=== PATIENT | male | born 1965 | race Caucasian/White ===

== ENCOUNTER 2020-06-04 07:02 | Day surgery (SDC) | payer BC ==
[~2020-06-04 07:02] MED LIST: Lactated Ringers 1,000 ML IV SCH; Lidocaine 1%/Sod Bicarbonate in NS 8.4% 1 ML Syringe IDERM PRN; Sodium Chloride 0.9% 10 ML Syringe FLUSH PRN
[2020-06-04] MEDS ORDERED: Rocuronium 50 MG/5 ML Vial ONE (07:07)
[2020-06-04] MEDS ORDERED: Midazolam 1 MG/ML 2 ML SDV ONE (07:07)
[2020-06-04] MEDS ORDERED: Propofol 200 MG/20 ML SDV ONE ×3 (07:07→08:57)
[2020-06-04] MEDS ORDERED: Lidocaine 1% 4 ML ONE (07:07)
[2020-06-04] MEDS ORDERED: fentaNYL 250 MCG/5 ML SDV ONE (07:08)
[2020-06-04] MEDS ORDERED: Lidocaine 1% with EPINEPHrine 1:100,000 20 ML MDV ONE ×2 (07:17→08:45)
--- NOTE | 2020-06-04 07:27 | PCM.PREANE ---
Preanesthetic Assessment - Anesthesia/Transfusion/Family Hx Anesthesia History: Prior Anesthesia Reaction Type of Anesthesia Reaction: Other (see below) (PONV) Family History of Anesthesia Reaction: No Transfusion History: No Prior Transfusion(s) - Review of Systems General: No Symptoms Pulmonary: No Symptoms Cardiovascular: No Symptoms Gastrointestinal: No Symptoms Neurological: No Symptoms Other: Reports: None - Physical Assessment NPO Status Date: 06/03/20 NPO Status Time: 18:00 ASA Class: 2 Mental Status: Alert & Oriented x3 Airway Class: Mallampati = 2 Dentition: Reports: Normal Dentition Thyro-Mental Finger Breadths: 2 Mouth Opening Finger Breadths: 3 ROM/Head Extension: Full Lungs: Clear to Auscultation, Normal Respiratory Effort Cardiovascular: Regular Rate, Regular Rhythm - Allergies Allergies/Adverse Reactions: Allergies Allergy/AdvReac Type Severity Reaction Status Date / Time No Known Allergies Allergy Verified 05/30/20 12:21 - Acknowledgements Anesthesia Type Planned: MAC Pt an Appropriate Candidate for the Planned Anesthesia: Yes Alternatives and Risks of Anesthesia Discussed w Pt/Guardian: Yes Pt/Guardian Understands and Agrees with Anesthesia Plan: Yes PreAnesthesia Questionnaire HEENT History: Reports: Hard of Hearing Other HEENT History: Patient has hearing aids Cardiovascular History: Reports: None Respiratory History: Reports: Asthma Other Respiratory History: 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 Gastrointestinal History: Reports: Chronic Constipation Genitourinary History: Reports: None Musculoskeletal History: Reports: Back Pain, Chronic, Other (See Below) Other Musculoskeletal History: Lumbar Spinal Arthrodesis Neurological History: Reports: None Psychiatric History: Reports: None Endocrine/Metabolic History: Reports: Hypothyroidism - Past Surgical History HEENT Surgical History: Reports: Other (See Below) Other HEENT Surgeries/Procedures: Nasal reconstruction for nasolacrimal duct stenosis Cardiovascular Surgical History: Reports: None GI Surgical History: Reports: Cholecystectomy Endocrine Surgical History: Reports: None Neurological Surgical History: Reports: Lumbar Spine, Spinal Fusion Musculoskeletal Surgical History: Reports: Other (See Below) Other Musculoskeletal Surgeries/Procedures:: Patient reports he had a work/lifting injury/accident and has had to have back surgery with yandel and pain stimulator placed to the left lower back as well as taking [place] to manage pain. - SUBSTANCE USE Tobacco Use Within Last Twelve Months: Snuff/Dip Recreational Drug Use History: No - HOME MEDS Home Medications: Home Meds Levothyroxine Sodium [Synthroid] 100 mcg PO BEDTIME 05/09/18 [History] Albuterol Sulfate [Albuterol Sulfate Hfa] 1 puff INH Q4H PRN 05/30/20 [History] Azelastine HCl 2 spray INH BID PRN 05/30/20 [History] Gabapentin [Neurontin] 300 mg PO TID PRN 05/30/20 [History] Hydrocodone/Acetaminophen [[place] 10-325 Tablet] 0.5 - 1 tab PO Q4H PRN 05/30/20 [History] Zolpidem [Ambien] 10 mg PO BEDTIME 05/30/20 [History] - CURRENT (IN HOUSE) MEDS Current Meds: Current Medications Lactated Ringer's (Ringers, Lactated) 1,000 mls @ 125 mls/hr IV ASDIRECTED AVELINA Stop: 06/04/20 23:00 Lidocaine/Sodium Bicarbonate (Buffered Lidocaine 1% In Ns 8.4%) 0.25 ml IDERM ONETIME PRN PRN Reason: Prior to IV Start Stop: 06/04/20 18:00 Sodium Chloride (Saline Flush) 10 ml FLUSH ASDIRECTED PRN PRN Reason: Keep Vein Open Stop: 06/04/20 18:00 Discontinued Medications Fentanyl (Sublimaze) Confirm Administered Dose 250 mcg .ROUTE .STK-MED ONE Stop: 06/04/20 07:09 Lidocaine HCl (Xylocaine-Mpf 1%) Confirm Administered Dose 4 mls @ as directed .ROUTE .STK-MED ONE Stop: 06/04/20 07:08 Lidocaine/Epinephrine (Xylocaine 1% With Epinephrine 1:100,000) Confirm Administered Dose 20 ml .ROUTE .STK-MED ONE Stop: 06/04/20 07:18 Midazolam HCl (Versed 1 Mg/Ml) Confirm Administered Dose 2 mg .ROUTE .STK-MED ON E Stop: 06/04/20 07:08 Propofol (Diprivan 20 Ml) Confirm Administered Dose 200 mg .ROUTE .STK-MED ONE Stop: 06/04/20 07:08 Rocuronium [place] (Zemuron) Confirm Administered Dose 50 mg .ROUTE .STK-MED ONE Stop: 06/04/20 07:08
[2020-06-04] MEDS ORDERED: ceFAZolin 1 GM Vial ONE ×2 (07:56)
[2020-06-04] MEDS ORDERED: Ondansetron 4 MG/2 ML SDV ONE (08:27)
[2020-06-04] MEDS ORDERED: Ketorolac 30 MG/ML SDV ONE (08:27)
[2020-06-04] MEDS ORDERED: Lactated Ringers 1,000 ML ONE (09:11)
[2020-06-04] MEDS ORDERED: fentaNYL 100 MCG/2 ML SDV ONE (09:36)
--- NOTE | 2020-06-04 09:44 | PCM48HPAN ---
Post Anesthesia Note - EVALUATION WITHIN 48HRS OF ANESTHETIC Vital Signs in Normal Range: Yes Patient Participated in Evaluation: Yes Respiratory Function Stable: Yes Airway Patent: Yes Cardiovascular Function Stable: Yes Hydration Status Stable: Yes Pain Control Satisfactory: Yes Nausea and Vomiting Control Satisfactory: Yes Mental Status Recovered: Yes Vital Signs: Last Vital Signs Temp 36.2 C 06/04/20 06:58 Pulse 62 06/04/20 06:58 Resp 17 06/04/20 06:58 BP 143/99 H 06/04/20 06:58 Pulse Ox 98 06/04/20 06:58
--- NOTE | 2020-06-04 10:33 | OR ---
DATE OF OPERATION: 06/04/2020 SURGEON: Swathi Goodson MD PREOPERATIVE DIAGNOSIS: Umbilical hernia, symptomatic. POSTOPERATIVE DIAGNOSIS: Umbilical hernia, incarcerated, no gangrene. OPERATION PERFORMED: Open umbilical hernia repair with mesh. ESTIMATED BLOOD LOSS: 5 mL. ANESTHESIA: Monitored anesthesia care with local anesthetic consisting of 1% lidocaine with epinephrine. A total of 40 mL were given. COMPLICATIONS: None. INDICATION AND CONSENT: The patient is a 55-year-old male, who had chronic umbilical hernia for over 4 years. Initially, he was asymptomatic, but developed symptoms this year. The patient presented to my clinic for evaluation. I evaluated the patient and recommended operative repair. We discussed risks, benefits, and alternatives, and informed consent was obtained. DESCRIPTION OF PROCEDURE: The patient was taken to the operating room, placed in supine position. Then, the patient was padded appropriately. A time-out was performed and then monitored anesthesia care was induced. The hair from the abdomen and around the umbilicus was clipped and then the abdomen was prepped and draped in the usual sterile fashion. Formal time-out was performed. I began by injecting 20 mL of local anesthetic around the umbilicus. Incision was made in the infraumbilical position and then the umbilical hernia sac was carefully isolated from the surrounding tissue sharply with Metzenbaum scissors. Once the hernia sac with its contents was isolated, the hernia sac was opened and then it contained omentum. We were not able to reduce this omentum; therefore, the hernia sac along with incarcerated omentum was amputated and taken off the field. The remainder of the omentum was placed back into the abdomen. The hernia defect was about 1.2 cm. Therefore, we elected to put a small mesh. A 4.3 cm rounded double-sided mesh was brought into the field. This was placed into the hernia defect and laid flat against the abdominal wall. 2-0 Prolene were used to secure the mesh against the abdominal wall on the inferior and superior positions and one 0 Prolene was used to secure the mesh against the abdominal wall in the right and left aspects. Once the mesh was secured, the umbilical hernia defect was also closed with 0 PDS suture in a running fashion, reapproximating the fascial defect. Then after this was done, the umbilical stalk was reattached to the fascia with 3-0 Vicryl stitches and then the incision was closed in two layers using 3-0 Vicryl stitches in interrupted fashion. Once this was done, the umbilical incision was cleaned out and dressed with Dermabond. The patient will be allowed to return home and to come in 2 weeks for followup. Of note, 20 mL additional local anesthetic was infiltrated deep into the abdominal wall, so a total of 40 of local anesthesia was used. ALFREDO /[id number] MTDD
== END 2020-06-04 10:50 | disposition home or self-care (01) ==
LOC: JD.SDS 07:02
PROVIDERS: ATTEND Surgery
DX: K42.0 Umbilical hernia with obstruction, without gangrene (principal); J45.909 Unspecified asthma, uncomplicated; E03.9 Hypothyroidism, unspecified; G47.30 Sleep apnea, unspecified; Z98.890 Other specified postprocedural states; Z79.899 Other long term (current) drug therapy; Z79.890 Hormone replacement therapy
CPT/HCPCS: 49587; J0690; J1885; J2001; J2250; J2405; J2704; J3010; J7120; 00790; C1781

== ENCOUNTER 2022-11-13 06:26 | Day surgery (SDC) | payer BC ==
[~2022-11-13 06:26] MED LIST changes: +Sodium Chloride 0.9% 10 ML Syringe FLUSH SCH
[2022-11-13] MEDS ORDERED: fentaNYL 100 MCG/2 ML SDV ONE (06:59)
[2022-11-13] MEDS ORDERED: Propofol 200 MG/20 ML SDV ONE (06:59)
== END 2022-11-13 09:00 | disposition home or self-care (01) ==
LOC: JD.SDS 06:26
PROVIDERS: ATTEND Family Medicine
DX: Z12.11 Encounter for screening for malignant neoplasm of colon (principal); D12.2 Benign neoplasm of ascending colon; K57.30 Diverticulosis of large intestine without perforation or abscess without bleeding; G47.30 Sleep apnea, unspecified; E03.9 Hypothyroidism, unspecified; E66.9 Obesity, unspecified; J45.20 Mild intermittent asthma, uncomplicated; Z20.822 Contact with and (suspected) exposure to COVID-19; Z68.39 Body mass index [BMI] 39.0-39.9, adult; Z79.899 Other long term (current) drug therapy; Z90.49 Acquired absence of other specified parts of digestive tract
CPT/HCPCS: 45380; J2704; J3010; J7120